=== PATIENT | male | born 1930 | race Caucasian/White ===

== ENCOUNTER 2016-09-30 18:38 | Emergency (ER) | payer MEDICARE ==
[2016-09-30] MEDS ORDERED: SODIUM CHLORIDE 0.9% 100 ML IV ONE (21:41)
[2016-09-30] MEDS ORDERED: CEFTRIAXONE 1 GM VIAL ONE ×2 (21:41→21:51)
[2016-09-30] MEDS ORDERED: SODIUM CHLORIDE 0.9% 0 ML IV ONE (21:51)
== END 2016-09-30 23:40 | disposition home or self-care (01) ==
LOC: ER 18:38
CPT/HCPCS: 36415 ×2; 71010 ×2; 80053 ×2; 81001 ×2; 82553 ×2; 82947 ×2; 83880 ×2; 84484 ×2; 85025 ×2; 87088 ×2; 93005 ×2; 96365 ×2; 99284; J0696; J7050